=== PATIENT | male | born 1960 | race Caucasian/White ===

== ENCOUNTER 2022-08-26 16:42 | Emergency (ER) | payer OTHER, MEDICAID ==
[~2022-08-26] VITALS: Ht 172.7 cm; Wt 95.3 kg
[2022-08-26 16:55] VITALS: BP 102/58
--- NOTE | 2022-08-26 17:15 | NUR ---
62/M WHEELCHAIRED IN C/O LEFT ANKLE PAIN AND SWELLING ONSET YESTERDAY. UNK CAUSE. DENIES FALL OR TRAUMA. PMH: THROAT CA, HTN
[2022-08-26 19:24] VITALS: BP 102/58
--- NOTE | 2022-08-26 19:24 | NUR ---
Patient discharged with v/s stable. Written and verbal after care instructions given and explained. Patient verbalized understanding. Wheel Chair Assisted with to car. All questions addressed prior to discharge. Advised to follow up with PMD.
== END 2022-08-26 19:24 | disposition home or self-care (01) ==
LOC: MED 16:42
DX: S93.402A Sprain of unspecified ligament of left ankle, initial encounter (principal); X58.XXXA Exposure to other specified factors, initial encounter; Y92.89 Other specified places as the place of occurrence of the external cause; Y93.89 Activity, other specified; Y99.8 Other external cause status
CPT/HCPCS: 73610; 99283